=== PATIENT | male | born 2000 | race Asian ===

== ENCOUNTER 2020-10-09 10:16 | Emergency (ER) | payer OTHER ==
[~2020-10-09] VITALS: Ht 200.7 cm; Wt 90.7 kg
[2020-10-09 10:17] VITALS: BP 160/58
[2020-10-09] MEDS ORDERED: IBUPROFEN 600 MG TAB PO ONE (10:30)
[2020-10-09] MEDS ORDERED: [UNRECOGNIZED DRUG - CODE] PO (10:36)
[2020-10-09] MEDS ORDERED: COLC-30 PO (10:36)
[2020-10-09 10:47] VITALS: BP 160/58
== END 2020-10-09 10:47 | disposition home or self-care (01) ==
LOC: MED 10:16
DX: M10.021 Idiopathic gout, right elbow (principal); Z79.899 Other long term (current) drug therapy
CPT/HCPCS: 99283

== ENCOUNTER 2022-06-11 15:00 | Emergency (ER) | payer OTHER ==
[~2022-06-11] VITALS: Ht 170.2 cm; Wt 86.2 kg
[~2022-06-11 15:00] MED LIST: COLC-30 PO; [UNRECOGNIZED DRUG - CODE] PO
[2022-06-11 15:07] VITALS: BP 134/73
--- NOTE | 2022-06-11 15:11 | NUR ---
21/M WALKED IN WITH CRUTCHES C/O RIGHT KNEE AND RIGHT ANKLE PAIN ONSET 4 DAYS AGO. DENIES FALL OR TRAUMA. STATES HX GOUT WITH LAST FLAREUP IN FEBRUARY. PT STATES 10/ PAIN, UNABLE TO BEAR WEIGHT TO THE RIGHT. PMH: GOUT NKA
--- NOTE | 2022-06-11 15:16 | NUR ---
ARGELIA Morales evaluating patient at bedside.
[2022-06-11] MEDS ORDERED: KETOROLAC 30 MG/ML VIAL IM ONE (15:20)
--- NOTE | 2022-06-11 15:22 | NUR ---
Lab at bedside.
--- NOTE | 2022-06-11 15:31 | NUR ---
X-Ray at bedside.
[2022-06-11 15:43] LABS: BASOPHILS % (AUTO) 0.3 % (0.0-2.0); EOSINOPHILS # (AUTO) 0.1 K/uL (0-0.4); EOSINOPHILS % (AUTO) 0.6 % (0.0-4.0); HEMATOCRIT 47.7 % (36-52); LYMPHOCYTES # (AUTO) 2.1 K/uL (2.0-11.5); LYMPHOCYTES % (AUTO) 25.2 % (20.5-51.1); MEAN CORPUSCULAR HEMOGLOBIN 26 pg (27-31); MEAN CORPUSCULAR HGB CONC 34 g/dL (33-37); MEAN CORPUSCULAR VOLUME 78.8 fL (80-94); MONOCYTES # (AUTO) 0.6 K/uL (0.8-1.0); MONOCYTES % (AUTO) 7.5 % (1.7-9.3); NEUTROPHILS # (AUTO) 5.4 K/uL (1.8-7.7); NEUTROPHILS % (AUTO) 66.4 % (42.2-75.2); PLATELET COUNT (AUTO) 273 K/uL (140-450); RED BLOOD CELL COUNT(AUTO) 6.05 MIL/uL (4.20-6.10); RED CELL DISTRIBUTION WIDTH 13.5 % (11.6-13.7); WHITE BLOOD COUNT (AUTO) 8.2 K/uL (4.8-10.8)
[2022-06-11 15:55] LABS: ANION GAP 7.1 (8-16); CARBON DIOXIDE 31.2 mmol/L (21-32); CREATININE 0.9 mg/dL (0.6-1.3); POTASSIUM 4.3 mmol/L (3.5-5.1)
--- NOTE | 2022-06-11 16:12 | NUR ---
ARGELIA Morales re-evaluating patient at bedside.
[2022-06-11] MEDS ORDERED: [UNRECOGNIZED DRUG - CODE] PO (16:14)
[2022-06-11] MEDS ORDERED: COLC-30 PO (16:23)
--- NOTE | 2022-06-11 16:25 | NUR ---
Patient discharged with v/s stable. Written and verbal after care instructions ABOUT URIC ACID TEST given and explained. Patient alert, oriented and verbalized understanding of instructions. Ambulatory with steady gait. All questions addressed prior to discharge. ID band removed. Patient advised to follow up with PMD. Rx of INDOTHEMACIN given. Patient educated on indication of medication including possible reaction and side effects. Opportunity to ask questions provided and answered.
== END 2022-06-11 16:24 | disposition home or self-care (01) ==
LOC: MED 15:00
DX: M10.071 Idiopathic gout, right ankle and foot (principal); M10.061 Idiopathic gout, right knee; R70.0 Elevated erythrocyte sedimentation rate; R79.82 Elevated C-reactive protein (CRP); Z79.899 Other long term (current) drug therapy
CPT/HCPCS: 36415; 73562; 73610; 80048; 84550; 85025; 85651; 86140; 99284; Q0092; J1885

== ENCOUNTER 2022-07-11 20:38 | Emergency (ER) | payer OTHER ==
[~2022-07-11] VITALS: Ht 167.6 cm; Wt 86.2 kg
[2022-07-11 20:44] VITALS: BP 165/80
--- NOTE | 2022-07-11 20:48 | NUR ---
TO LOBBY A/W BED AMBULATORY
[2022-07-11 20:49] VITALS: BP 165/80
[2022-07-11] MEDS ORDERED: KETOROLAC 30 MG/ML VIAL IM ONE (21:25)
--- NOTE | 2022-07-11 22:57 | NUR ---
SEEN AND EXAMINED BY MODESTA
[2022-07-11] MEDS ORDERED: NAPR-54 PO (23:08)
[2022-07-11] MEDS ORDERED: COLC-30 PO (23:08)
[2022-07-11] MEDS ORDERED: ALLO100T21 PO (23:08)
--- NOTE | 2022-07-11 23:10 | NUR ---
Patient discharged with v/s stable. Written and verbal after care instructions given and explained. Patient alert, oriented and verbalized understanding of instructions. Ambulatory with steady gait. All questions addressed prior to discharge. ID band removed. Patient advised to follow up with PMD. Rx of NAPROSYN, ALLOPURINOL, AND COLCHINE given. Patient educated on indication of medication including possible reaction and side effects. Opportunity to ask questions provided and answered.
== END 2022-07-11 23:10 | disposition home or self-care (01) ==
LOC: MED 20:38
DX: M10.9 Gout, unspecified (principal); R03.0 Elevated blood-pressure reading, without diagnosis of hypertension
CPT/HCPCS: 73610; 99283; J1885

== ENCOUNTER 2022-12-08 02:39 | Emergency (ER) | payer OTHER ==
[~2022-12-08] VITALS: Ht 167.6 cm; Wt 88.5 kg
[~2022-12-08 02:39] MED LIST changes: +ALLO100T21 PO; +NAPR-54 PO
[2022-12-08 02:48] VITALS: BP 136/84
[2022-12-08] MEDS ORDERED: KETOROLAC 60 MG/2 ML VIAL IM ONE (03:15)
[2022-12-08] MEDS ORDERED: COLC0.6C PO (03:21)
[2022-12-08] MEDS ORDERED: ALLO100T21 PO (03:21)
[2022-12-08] MEDS ORDERED: NAPR-54 PO (03:27)
--- NOTE | 2022-12-08 03:31 | NUR ---
Patient discharged with v/s stable. Written and verbal after care instructions given and explained. Patient verbalized understanding. Ambulatory with steady gait. All questions addressed prior to discharge. Advised to follow up with PMD.
== END 2022-12-08 03:31 | disposition home or self-care (01) ==
LOC: MED 02:39
DX: M25.579 Pain in unspecified ankle and joints of unspecified foot (principal); M10.071 Idiopathic gout, right ankle and foot; Z79.899 Other long term (current) drug therapy
CPT/HCPCS: 96372; 99283; J1885